=== PATIENT | female | born 1995 | race American Indian/Alaskan Native ===

== ENCOUNTER 2016-10-08 16:12 | Emergency (ER) | payer MEDICAID ==
[2016-10-08 16:22] VITALS: BP 137/82
--- NOTE | 2016-10-08 18:42 | Emergency Department Report ---
HPI - General Chief Complaint: Upper Respiratory Infection Time Seen by Provider: 10/08/16 18:41 - HPI HPI: Seen here complaining of sore throat, productive cough and that she is having wheezing and coughing and some chest tightness when she coughs. Patient says she has chronic bronchitis and she uses albuterol inhaler as needed. Denies any nausea or vomiting. Denies any fever or chills. She says she is having generalized body aches at 10 out of 10 and it's achy. She says she took over- the-counter cold and cough medicine but it's not helping. She reported that nasal congestion has been going on for over a week but her cough and an wheezing and started 3 days ago. Last menstrual period was 09/10/2016 ED Past Medical Hx - Past Medical History Previous Medical History?: Yes Additional medical history: bronchitis - Surgical History Past Surgical History?: Yes Additional Surgical History: Breast reduction ,tonsillectomy - Family History Family history: hypertension - Social History Smoking Status: Current Every Day Smoker Substance Use Type: Alcohol - Medications Home Medications: Home Medications Medication Instructions Recorded Confirmed Last Taken Type ALBUTEROL Inhaler [ProAir HFA 2 puff IH QID PRN #1 inhalation 05/02/15 Unknown Rx Inhaler] Acetaminophen/Codeine [Tylenol #3] 1 tab PO Q6H PRN #14 tab 05/02/15 Unknown Rx Azithromycin [Zithromax Z-CLIFFORD] 250 mg PO DAILY #1 pack 05/02/15 Unknown Rx Amoxicillin/K Clav Tab [Augmentin 1 tab PO Q12HR #20 tab 10/08/16 Unknown Rx 875 mg] Fluticasone [Flonase] 1 spray NS QDAY #1 bottle 10/08/16 Unknown Rx Ibuprofen [Motrin 800 MG tab] 800 mg PO Q8HR PRN #15 tablet 10/08/16 Unknown Rx guaiFENesin/CODEINE [Robitussin AC] 10 ml PO QHS PRN #50 oral.liqd 10/08/16 Unknown Rx predniSONE [Deltasone] 50 mg PO QDAY #5 tab 10/08/16 Unknown Rx ED Review of Systems ROS: Stated complaint: SORE THROAT Other details as noted in HPI Comment: All other systems reviewed and negative Constitutional: denies: chills, fever, malaise ENT: throat pain, congestion. denies: ear pain, dental pain Respiratory: cough, wheezing. denies: orthopnea, shortness of breath, SOB with exertion, SOB at rest, stridor Cardiovascular: denies: chest pain, palpitations, edema, syncope Gastrointestinal: denies: abdominal pain, nausea, vomiting Musculoskeletal: myalgia. denies: back pain, arthralgia Skin: denies: rash Neurological: denies: headache, numbness, paresthesias, abnormal gait, vertigo Physical Exam - Physical Exam Vital Signs: Vital Signs 10/08/16 16:19 Temperature 98.5 F Pulse Rate 88 Respiratory 18 Rate Blood Pressure 137/82 O2 Sat by Pulse 20 L Oximetry Vital Signs 10/08/16 10/08/16 16:19 18:45 Temperature 98.5 F Pulse Rate 88 Respiratory 18 Rate Blood Pressure 137/82 O2 Sat by Pulse 20 L 100 Oximetry General: This is a 21-year-old female well-nourished well-developed in no acute distress Physical Exam: Head: Normocephalic atraumatic Mouth: Moist, no pharyngeal exudate or erythema. Uvula is midline and oral airway is patent. No gingival enlargement or dental tenderness. No facial swelling. No peritonsillar abscesses. Neck: Supple, no C-spine tenderness, no tracheal deviation. Nontender to palpate. no adenopathy Ears: Bilateral TMs congested without erythema .bilateral EAC without any redness swelling or drainage Eyes: Bilateral pupils equal and reactive to light, bilateral EOM intact. Bilateral sclera and conjunctiva without injection. Normal accommodation Nose: Mucosa moist, positive congestion with erythema. Positive clear drainage. maxillary and frontal sinus non-tender to palpate. Lungs:Clear to auscultate bilaterally no rhonchi wheezes or rales. Normal work of breathing . Dry cough extremity; No CCE. +2 pulses. No neurovascular compromise Cardiovascular: S1-S2, regular rate rhythm. No murmurs. Skin: clean Dry and intact no rash no lesions Psych: Normal mood and behavior ED Course Vital Signs 10/08/16 16:19 Temperature 98.5 F Pulse Rate 88 Respiratory 18 Rate Blood Pressure 137/82 O2 Sat by Pulse 20 L Oximetry Vital Signs 10/08/16 10/08/16 16:19 18:45 Temperature 98.5 F Pulse Rate 88 Respiratory 18 Rate Blood Pressure 137/82 O2 Sat by Pulse 20 L 100 Oximetry - Reevaluation(s) Reevaluation #1: 10/08/16 18:52 Patient received Tylenol No. 3 2 tablets in emergency room at her request for generalized pain. ED Medical Decision Making - Medical Decision Making ED course: I Discussed with patient that she has acute upper respiratory tract infection which is more than likely viral in nature. An acute cough. I discussed with her that because she has chronic bronchitis and this could turn into bronchitis I will place her on antibiotic. I discussed with patient that I 'll put her on medication for upper respiratory such as Zyrtec, Flonase and steroid and if that does not work over the next couple days that she can start taking Augmentin. She voices understanding of discharge instruction and was given Tylenol 3 and emergency room for generalized muscle aches. He said discharged home in stable condition with prescription for Augmentin, Motrin, prednisone, Flonase, Zyrtec and guaifenesin with codeine. Critical care attestation.: If time is entered above; I have spent that time in minutes in the direct care of this critically ill patient, excluding procedure time. ED Disposition Clinical Impression: Acute upper respiratory infection, Cough Acute pharyngitis Qualifiers: Pharyngitis/tonsillitis etiology: unspecified etiology Qualified Code(s): J02.9 - Acute pharyngitis, unspecified Disposition: DISCHARGED TO HOME OR SELFCARE Is pt being admited?: No Does the pt Need Aspirin: No Condition: Stable Instructions: Pharyngitis (ED), Acute Cough (ED), Upper Respiratory Infection ( ED) Additional Instructions: Increase her fluid intake Use saline nasal spray to flush her nostrils without 2 times a day. Take medication as prescribed Please do not take cough medicine while driving as this will cause drowsiness. Prescriptions: guaiFENesin/CODEINE [Robitussin AC] 10 ml PO QHS PRN #50 oral.liqd PRN Reason: Cough Amoxicillin/K Clav Tab [Augmentin 875 mg] 1 tab PO Q12HR #20 tab Fluticasone [Flonase] 1 spray NS QDAY #1 bottle Ibuprofen [Motrin 800 MG tab] 800 mg PO Q8HR PRN #15 tablet PRN Reason: Pain predniSONE [Deltasone] 50 mg PO QDAY #5 tab Referrals: [facility] [Outside] - 10/11/16 Your, Doctor [Other] - 10/11/16 Forms: Work/School Release Form(ED)
[2016-10-08] MEDS ORDERED: TYLENOL #3 PO ONE (18:43)
== END 2016-10-08 19:15 | disposition home or self-care (01) ==
LOC: ED 16:12
DX: J06.9 Acute upper respiratory infection, unspecified (principal); J02.9 Acute pharyngitis, unspecified; F17.200 Nicotine dependence, unspecified, uncomplicated
CPT/HCPCS: 99282

== ENCOUNTER 2016-10-14 19:21 | Emergency (ER) | payer MEDICAID ==
[2016-10-14 19:41] VITALS: BP 124/78
[2016-10-14] MEDS ORDERED: XYLOCAINE 1% MPF 5 mL INFILTRATI ONE (20:19)
[2016-10-14] MEDS ORDERED: DECADRON IV ONE (20:19)
[2016-10-14] MEDS ORDERED: ROCEPHIN IM ONE (20:19)
--- NOTE | 2016-10-14 20:39 | Emergency Department Report ---
- General Chief Complaint: Upper Respiratory Infection Stated Complaint: CHEST, THROAT, AND BODY PAIN Time Seen by Provider: 10/14/16 20:06 Source: patient Mode of arrival: Ambulatory Limitations: No Limitations - History of Present Illness Initial Comments: Patient comes in to the ER today with complaints of generalized body aches, cough, fatigue. Patient states that she was seen here last week and diagnosed with a throat infection and started on some amoxicillin. Patient states she is still taking the amoxicillin but that today she woke up feeling really bad and achy. MD Complaint: cough, rhinorrhea, nasal congestion -: week(s) (1) Severity: moderate Consistency: constant Improves With: nothing Worsens With: deep breaths Associated Symptoms: chills, myalgias, rhinorrhea, nasal congestion, cough, chest pain. denies: abdominal pain, nausea, vomiting, diarrhea, dysuria, epistaxis Treatments Prior to Arrival: antibiotics - Related Data Previous Rx's Medication Instructions Recorded Last Taken Type ALBUTEROL Inhaler [ProAir HFA 2 puff IH QID PRN #1 inhalation 05/02/15 Unknown Rx Inhaler] Fluticasone [Flonase] 1 spray NS QDAY #1 bottle 10/08/16 Unknown Rx Levofloxacin [Levaquin TAB] 500 mg PO QDAY #10 tablet 10/14/16 Unknown Rx traMADol [Ultram 50 MG tab] 50 mg PO Q4HR PRN #30 tablet 10/14/16 Unknown Rx Allergies Allergy/AdvReac Type Severity Reaction Status Date / Time sulfamethoxazole Allergy Itching Verified 05/02/15 19:44 [From Bactrim] trimethoprim [From Bactrim] Allergy Itching Verified 05/02/15 19:44 ED Review of Systems ROS: Stated complaint: CHEST, THROAT, AND BODY PAIN Other details as noted in HPI Constitutional: chills, fever, weakness Eyes: denies: eye pain, eye discharge, vision change ENT: denies: ear pain, throat pain Respiratory: cough. denies: shortness of breath, wheezing Cardiovascular: denies: chest pain, palpitations, dyspnea on exertion Endocrine: no symptoms reported Gastrointestinal: denies: abdominal pain, nausea, diarrhea Genitourinary: denies: urgency, dysuria, discharge Musculoskeletal: denies: back pain, joint swelling, arthralgia Skin: denies: rash, lesions Neurological: denies: headache, weakness, paresthesias Psychiatric: denies: anxiety, depression Hematological/Lymphatic: denies: easy bleeding, easy bruising ED Past Medical Hx - Past Medical History Previous Medical History?: Yes Additional medical history: bronchitis / PHARANGITIS - Surgical History Past Surgical History?: Yes Additional Surgical History: Breast reduction '10,tonsillectomy - Social History Smoking Status: Current Every Day Smoker Substance Use Type: None - Medications Home Medications: Home Medications Medication Instructions Recorded Confirmed Last Taken Type ALBUTEROL Inhaler [ProAir HFA 2 puff IH QID PRN #1 inhalation 05/02/15 Unknown Rx Inhaler] Fluticasone [Flonase] 1 spray NS QDAY #1 bottle 10/08/16 Unknown Rx Levofloxacin [Levaquin TAB] 500 mg PO QDAY #10 tablet 10/14/16 Unknown Rx traMADol [Ultram 50 MG tab] 50 mg PO Q4HR PRN #30 tablet 10/14/16 Unknown Rx ED Physical Exam - General Limitations: No Limitations General appearance: alert, in no apparent distress - Head Head exam: Present: atraumatic, normocephalic - Eye Eye exam: Present: normal appearance - ENT ENT exam: Present: normal exam, normal orophraynx, mucous membranes moist, TM's normal bilaterally, normal external ear exam, other (mildly erythematous and swollen nasal turbinates bilaterally) - Neck Neck exam: Present: normal inspection - Respiratory Respiratory exam: Present: normal lung sounds bilaterally, rales (right lower lobe), rhonchi. Absent: respiratory distress, wheezes, chest wall tenderness, accessory muscle use, decreased breath sounds - Cardiovascular Cardiovascular Exam: Present: regular rate, normal rhythm. Absent: systolic murmur, diastolic murmur, rubs, gallop - GI/Abdominal GI/Abdominal exam: Present: soft, normal bowel sounds. Absent: distended, tenderness - Extremities Exam Extremities exam: Present: normal inspection - Back Exam Back exam: Present: normal inspection - Neurological Exam Neurological exam: Present: alert, oriented X3 - Psychiatric Psychiatric exam: Present: normal affect, normal mood - Skin Skin exam: Present: warm, dry, intact, normal color. Absent: rash ED Course Vital Signs 10/14/16 19:35 Temperature 98.7 F Pulse Rate 70 Respiratory 18 Rate Blood Pressure 124/78 O2 Sat by Pulse 98 Oximetry ED Medical Decision Making - EKG Data -: EKG Interpreted by Me EKG shows normal: sinus rhythm Rate: normal (64 bpm) - EKG Data Interpretation: no acute changes 10/14/16 21:04 Normal sinus rhythm, no Q waves noted, T wave inversion noted in aVR and V1 leads - Radiology Data Radiology results: image reviewed interpreted by me: Right lower lobe haziness consistent with early pneumonitis. - Medical Decision Making Patient is nontoxic and hemodynamically stable. X-ray results reviewed and discussed with patient room. Patient was given Decadron 10 mg IM as well as Rocephin 1 g IM in the ER. I will continue patient on some outpatient Levaquin and excuse patient from school. Patient is stable for discharge and is agreement with treatment plan. Critical care attestation.: If time is entered above; I have spent that time in minutes in the direct care of this critically ill patient, excluding procedure time. ED Disposition Clinical Impression: Pneumonia Disposition: DISCHARGED TO HOME OR SELFCARE Is pt being admited?: No Does the pt Need Aspirin: No Condition: Stable Instructions: Community-acquired Pneumonia (ED) Prescriptions: Levofloxacin [Levaquin TAB] 500 mg PO QDAY #10 tablet traMADol [Ultram 50 MG tab] 50 mg PO Q4HR PRN #30 tablet PRN Reason: Pain Referrals: PRIMARY CARE,MD [Primary Care Provider] - 3-5 Days Forms: Work/School Release Form(ED) Time of Disposition: 21:08
[2016-10-14] MEDS ORDERED: DECADRON IM ONE (20:40)
--- NOTE | 2016-10-15 07:30 | XRay Report ---
Chest 2 views: Compared to. History: Chest pain, cough. Findings: Normal cardiomediastinal silhouette. Trachea is midline. No consolidation, pneumothorax or pleural effusion. Impression: No acute cardiopulmonary findings.
== END 2016-10-14 21:15 | disposition home or self-care (01) ==
LOC: ED 19:21
DX: J18.9 Pneumonia, unspecified organism (principal); F17.200 Nicotine dependence, unspecified, uncomplicated; Z90.89 Acquired absence of other organs; Z88.8 Allergy status to other drugs, medicaments and biological substances
CPT/HCPCS: 71020; 93005; 93010; 96372; 99283; J0696; J1100

== ENCOUNTER 2017-01-18 12:59 | Emergency (ER) | payer MEDICAID ==
[2017-01-18 13:13] VITALS: BP 115/79
--- NOTE | 2017-01-18 17:36 | Emergency Department Report ---
- General Chief Complaint: Upper Respiratory Infection Stated Complaint: CHEST AND BACK PAIN Time Seen by Provider: 01/18/17 16:28 Source: patient Mode of arrival: Ambulatory Limitations: No Limitations - History of Present Illness Initial Comments: This is a 22-year-old female nontoxic, well nourished in appearance, no acute signs of distress complaining of cough that is productive with yellow/green production 1 week. Patient denies any sick contact. Denies any chest pain, shortness of breath, stiff neck, headache, fever, chills, wheezing, nausea or vomiting. Patient denies any past medical history besides bronchitis. Allergies to Bactrim. Last menstrual period 01/11/2017. MD Complaint: cough -: Gradual, week(s) (1) Severity: mild Consistency: constant Worsens With: nothing Associated Symptoms: cough. denies: fever, chills, myalgias, diaphoresis, headache, rhinorrhea, nasal congestion, sore throat, stiff neck, chest pain, shortness of breath, abdominal pain, nausea, vomiting, diarrhea, dysuria, rash, confusion, right sweats, weight loss, epistaxis, hoarseness, ear pain - Related Data Previous Rx's Medication Instructions Recorded Last Taken Type ALBUTEROL Inhaler [ProAir HFA 2 puff IH QID PRN #1 inhalation 05/02/15 Unknown Rx Inhaler] Fluticasone [Flonase] 1 spray NS QDAY #1 bottle 10/08/16 Unknown Rx Levofloxacin [Levaquin TAB] 500 mg PO QDAY #10 tablet 10/14/16 Unknown Rx traMADol [Ultram 50 MG tab] 50 mg PO Q4HR PRN #30 tablet 10/14/16 Unknown Rx Azithromycin [Zithromax Z-CLIFFORD] 250 mg PO DAILY #6 tablet 01/18/17 Unknown Rx guaiFENesin [Robitussin] 200 mg PO Q4HR 10 Days 01/18/17 Unknown Rx Allergies Allergy/AdvReac Type Severity Reaction Status Date / Time sulfamethoxazole Allergy Itching Verified 05/02/15 19:44 [From Bactrim] trimethoprim [From Bactrim] Allergy Itching Verified 05/02/15 19:44 ED Review of Systems ROS: Stated complaint: CHEST AND BACK PAIN Other details as noted in HPI Constitutional: denies: chills, fever Eyes: denies: eye pain, eye discharge, vision change ENT: denies: ear pain, throat pain Respiratory: cough. denies: shortness of breath, wheezing Cardiovascular: denies: chest pain, palpitations Endocrine: no symptoms reported Gastrointestinal: denies: abdominal pain, nausea, diarrhea Genitourinary: denies: urgency, dysuria, discharge Musculoskeletal: denies: back pain, joint swelling, arthralgia Skin: denies: rash, lesions Neurological: denies: headache, weakness, paresthesias Psychiatric: denies: anxiety, depression Hematological/Lymphatic: denies: easy bleeding, easy bruising ED Past Medical Hx - Past Medical History Previous Medical History?: Yes Additional medical history: bronchitis / PHARANGITIS - Surgical History Past Surgical History?: Yes Additional Surgical History: Breast reduction '10,tonsillectomy - Social History Smoking Status: Never Smoker Substance Use Type: Alcohol - Medications Home Medications: Home Medications Medication Instructions Recorded Confirmed Last Taken Type ALBUTEROL Inhaler [ProAir HFA 2 puff IH QID PRN #1 inhalation 05/02/15 Unknown Rx Inhaler] Fluticasone [Flonase] 1 spray NS QDAY #1 bottle 10/08/16 Unknown Rx Levofloxacin [Levaquin TAB] 500 mg PO QDAY #10 tablet 10/14/16 Unknown Rx traMADol [Ultram 50 MG tab] 50 mg PO Q4HR PRN #30 tablet 10/14/16 Unknown Rx Azithromycin [Zithromax Z-CLIFFORD] 250 mg PO DAILY #6 tablet 01/18/17 Unknown Rx guaiFENesin [Robitussin] 200 mg PO Q4HR 10 Days 01/18/17 Unknown Rx ED Physical Exam - General Limitations: No Limitations General appearance: alert, in no apparent distress - Head Head exam: Present: atraumatic, normocephalic - Eye Eye exam: Present: normal appearance, PERRL, EOMI. Absent: scleral icterus, conjunctival injection, nystagmus, periorbital swelling, periorbital tenderness Pupils: Present: normal accommodation - ENT ENT exam: Present: normal exam, normal orophraynx, mucous membranes moist, TM's normal bilaterally, normal external ear exam - Neck Neck exam: Present: normal inspection, full ROM. Absent: tenderness, meningismus, lymphadenopathy, thyromegaly - Respiratory Respiratory exam: Present: normal lung sounds bilaterally. Absent: respiratory distress, wheezes, rales, rhonchi, stridor, chest wall tenderness, accessory muscle use, decreased breath sounds, prolonged expiratory - Cardiovascular Cardiovascular Exam: Present: regular rate, normal rhythm, normal heart sounds. Absent: bradycardia, tachycardia, irregular rhythm, systolic murmur, diastolic murmur, rubs, gallop - GI/Abdominal GI/Abdominal exam: Present: soft, normal bowel sounds. Absent: distended, tenderness, guarding, rebound, rigid, diminished bowel sounds - Rectal Rectal exam: Present: deferred - Extremities Exam Extremities exam: Present: normal inspection, full ROM, normal capillary refill. Absent: tenderness, pedal edema, joint swelling, calf tenderness - Back Exam Back exam: Present: normal inspection, full ROM. Absent: tenderness, CVA tenderness (R), CVA tenderness (L), muscle spasm, paraspinal tenderness, vertebral tenderness, rash noted - Neurological Exam Neurological exam: Present: alert, oriented X3, CN II-XII intact, normal gait, reflexes normal - Psychiatric Psychiatric exam: Present: normal affect, normal mood - Skin Skin exam: Present: warm, dry, intact, normal color. Absent: rash ED Course Vital Signs 01/18/17 13:08 Temperature 99.3 F Pulse Rate 64 Respiratory 18 Rate Blood Pressure 115/79 O2 Sat by Pulse 96 Oximetry - Reevaluation(s) Reevaluation #1: 01/18/17 17:49 Patient is able speak full sentences with no signs of distress. Critical care attestation.: If time is entered above; I have spent that time in minutes in the direct care of this critically ill patient, excluding procedure time. ED Disposition Clinical Impression: Upper respiratory infection Qualifiers: URI type: unspecified URI Qualified Code(s): J06.9 - Acute upper respiratory infection, unspecified Disposition: DC- TO HOME OR SELFCARE Is pt being admited?: No Does the pt Need Aspirin: No Condition: Stable Instructions: Upper Respiratory Infection (ED), Azithromycin (By mouth) Additional Instructions: Follow-up with your primary care doctor 3-5 days or symptoms such as chest pain , shortness of breath, or worsening symptoms presents to emergency room as soon as possible Prescriptions: Azithromycin [Zithromax Z-CLIFFORD] 250 mg PO DAILY #6 tablet guaiFENesin [Robitussin] 200 mg PO Q4HR 10 Days Referrals: PRIMARY CAREMD [Primary Care Provider] - 3-5 Days NEETA TEJADA MD [Staff Physician] - 3-5 Days [facility] [Outside] - 3-5 Days [facility] [Outside] - 3-5 Days Forms: Work/School Release Form(ED)
[2017-01-18] MEDS ORDERED: MOTRIN ONE (18:00)
[2017-01-18] MEDS ORDERED: MOTRIN PO ONE (18:01)
== END 2017-01-18 18:07 | disposition home or self-care (01) ==
LOC: ED 12:59
DX: J06.9 Acute upper respiratory infection, unspecified (principal); Z88.2 Allergy status to sulfonamides; Z88.8 Allergy status to other drugs, medicaments and biological substances
CPT/HCPCS: 99282

== ENCOUNTER 2017-11-03 04:24 | Emergency (ER) | payer SELFPAY ==
[2017-11-03 05:00] VITALS: BP 124/84
[2017-11-03 06:04] LABS: Basophils % (Auto) 0.6 % (0.0-1.8); Eosinophils % (Auto) 0.5 % (0.0-4.3); Hematocrit 41.1 % (30.3-42.9); Hemoglobin 13.1 gm/dl (10.1-14.3); Mean Corpuscular HGB Conc 32 % (30-34); Mean Corpuscular Hemoglobin 30 pg (28-32); Mean Corpuscular Volume 93 fl (79-97); Monocytes # (Auto) 0.2 K/mm3 (0.0-0.8); Monocytes % (Auto) 3.7 % (0.0-7.3); Platelet Count 245 K/mm3 (140-440); Red Cell Distribution Width 12.8 % (13.2-15.2)
[2017-11-03 06:20] LABS: Alanine Aminotransferase 12 units/L (7-56); Albumin 4.4 g/dL (3.9-5); BUN/Creatinine Ratio 6; Blood Urea Nitrogen 5 mg/dL (7-17); Calcium 9.2 mg/dL (8.4-10.2); Hemolysis Index 0; Lipase 14 units/L (13-60)
[2017-11-03 06:30] LABS: Bilirubin,Urine NEG (Negative); Blood,Urine NEG (Negative); Color,Urine Yellow (Yellow); Mucus,Urine FEW /HPF; Protein,Urine <15 mg/dL mg/dL (Negative); Urobilinogen,Urine < 2.0 mg/dL (<2.0)
[2017-11-03 06:38] LABS: HCG Qualitative,Urine Negative (Negative)
== END 2017-11-03 07:12 | disposition left against medical advice (07) ==
LOC: ED 04:24
DX: R11.2 Nausea with vomiting, unspecified (principal); R10.9 Unspecified abdominal pain; Z53.21 Procedure and treatment not carried out due to patient leaving prior to being seen by health care provider
CPT/HCPCS: 36415; 80053; 81001; 81025; 83690; 85025

== ENCOUNTER 2020-10-19 17:34 | Emergency (ER) | payer SELFPAY | END 2020-10-20 02:37 | LOC: ED 17:34 | DX: S41.119A Laceration without foreign body of unspecified upper arm, initial encounter (principal); Z53.21 Procedure and treatment not carried out due to patient leaving prior to being seen by health care provider; X58.XXXA Exposure to other specified factors, initial encounter; Y93.89 Activity, other specified; Y92.89 Other specified places as the place of occurrence of the external cause; Y99.8 Other external cause status ==